=== PATIENT | male | born 1980 | race Caucasian/White ===

== ENCOUNTER 2024-06-17 11:30 | Emergency (ER) | payer OTHER, SELFPAY ==
[2024-06-17 11:37] VITALS: BP 145/95; PULSE 78; RESP 16; TEMP 36.4; O2SAT 100
[2024-06-17 11:42] VITALS: BP 145/95; PULSE 78; RESP 16; TEMP 36.4; O2SAT 100
--- NOTE | 2024-06-17 11:44 | ED.UPPEXIN ---
HPI - Extremity Injury (Upper) General Chief Complaint: Extremity Injury, Upper Stated Complaint: Left Elbow/Shoulder Pain Time Seen by Provider: 06/17/24 11:48 Source: patient and RN notes reviewed Mode of arrival: ambulatory Limitations: no limitations History of Present Illness HPI narrative: 43-year-old male presents with concern for left elbow injury. Reports he was putting down a box yesterday when he felt a pop in his elbow and since then has had intermittent tingling in the elbow and in the hand. He denies current pain or tingling. He reports he took ibuprofen yesterday without relief. complaint: injury to: left and elbow Related Data Home Medications Medication Instructions Recorded Confirmed clonazepam 0.5 mg tablet 0.25 mg PO BID PRN Anxiety 06/17/24 06/17/24 metoprolol succinate 50 mg capsule 50 mg PO DAILY 06/17/24 06/17/24 sprinkle, ext. release 24 hr Allergies Allergy/AdvReac Type Severity Reaction Status Date / Time No Known Allergies Allergy Verified 06/17/24 11:40 Review of Systems Review of Systems: CONSTITUTIONAL: Denies malaise, chills, sweats, or fever. SKIN: Denies rash or itching, open skin, laceration, abrasion, redness, warmth, swelling. MUSCULOSKELETAL: Reports left elbow injury. Denies current pain NEUROLOGIC: Denies numbness, weakness All systems reviewed & are unremarkable except as noted in HPI and below PMFSH Comments At time of signature, agree with nursing past medical, surgical, social and family history. There is no relevant family history pertinent to the presenting complaint Exam Narrative: GENERAL: Well-appearing, well-nourished, and in no acute distress. HEAD: Normocephalic, atraumatic. EYES: PERRLA, conjunctivae clear NECK: Supple. CHEST: Speaks in full sentences. No respiratory distress. HEART: Regular rate and rhythm. Normal and equal peripheral pulses. EXTREMITIES: Left shoulder, elbow, hand, digits have grossly normal strength and sensation, normal range of motion. No edema, erythema, warmth, or ecchymosis. 5/5 strength with digit flexion and extension. Normal sensation with sensitivity to light touch and pain. No tenderness. No open wounds, no skin tenting, no devitalized tissue or atrophy, no trophic changes, no obvious deformity, alignment normal, nearby joints and structures intact. Distal pulses palpable and equal bilaterally, skin warm, dry, pink. Capillary refill less than 3 seconds. SKIN: Warm, dry, no rash. NEURO: Alert and oriented x3. PSYCH: Normal mood and affect Course Course Emergency Course: Patient is aware of diagnosis, understands and agrees to treatment plan. Anticipatory guidance given. Patient agrees to follow-up as directed and is aware of reasons to seek care at the emergency department. Portions of this record may have been created with voice recognition software Level of Care: Express Care Visit Vital Signs Vital signs: Vital Signs Temperature 97.5 F L 06/17/24 11:37 Pulse Rate 78 06/17/24 11:37 Respiratory Rate 16 06/17/24 11:37 Blood Pressure 145/95 H 06/17/24 11:37 Pulse Oximetry 100 06/17/24 11:37 Oxygen Delivery Room Air 06/17/24 11:37 Temperature 97.5 F L 06/17/24 11:42 Pulse Rate 78 06/17/24 11:42 Respiratory Rate 16 06/17/24 11:42 Blood Pressure 145/95 H 06/17/24 11:42 Pulse Oximetry 100 06/17/24 11:42 Oxygen Delivery Room Air 06/17/24 11:42 Reviewed. MDM - Extremity Injury (Upper) MDM Narrative Medical decision making narrative: Patients injury and is consistent with musculoskeletal etiology. No signs of neurological or vascular compromise on exam. Compartments and tissues are soft without signs of compartment syndrome. Pain is felt appropriate for further evaluation on an outpatient basis. Critical Care Time Critical Care Time Critical Care Time: No Discharge Plan Discharge Clinical Impression: Injury of elbow, left Patient Disposition: Home, Self-
== END 2024-06-17 12:03 | disposition home or self-care (01) ==
PROVIDERS: Emergency Provider Nurse Practitioner; PCP Internal Medicine
DX: S59.902A Unspecified injury of left elbow, initial encounter (principal); X58.XXXA Exposure to other specified factors, initial encounter; I10 Essential (primary) hypertension
CPT/HCPCS: 99212; G0463